=== PATIENT | male | born 1975 | race Caucasian/White ===

== ENCOUNTER 2025-07-06 09:46 | Outpatient (CLI) | payer MEDICAID ==
--- NOTE | 2025-07-06 12:05 | RADIOLOGY REPORT ---
CLINICAL INFORMATION: PAIN IN RIGHT AND LEFT SHOULDER. TECHNIQUE: Multisequence multiplanar MRI images of the right shoulder were obtained without contrast . COMPARISON: None FINDINGS: Acromioclavicular joint: There is moderate acromioclavicular hypertrophy and moderate edema. There is type 1 acromion. Small amount of fluid in the subacromial / subdeltoid bursa. Rotator cuff tendons: Attenuated distal supraspinatus and infraspinatus tendons. There is articular s urface fraying in the supraspinatus and infraspinatus tendons just proximal to their insertions. Par tial-thickness tear of the supraspinatus tendon insertional footprint measuring up to approximately 0 .7 cm in AP dimension and 0.5 cm in transverse dimension, involving up to 50% of the tendon thickness , appears to be interstitial tear, although articular surface communication of the tear can not be ex cluded. Mild tendinosis of the distal subscapularis tendon with small thin interstitial tear near its insertion. Teres minor tendon is intact. Biceps tendon: No significant tendinosis. No evidence of attrition or tear. Labrum: No labral tear identified. Bones: No fracture or focal marrow contusion. Muscles: Normal muscle bulk. No atrophy. Other: No other significant findings. IMPRESSION: 1. Attenuated distal supraspinatus and infraspinatus tendons with articular surface fraying just prox imal to their insertions. Partial-thickness tear of the supraspinatus tendon insertional footprint as described above. 2. Mild tendinosis of the distal subscapularis tendon with small thin interstitial tear near its inse rtion. 3. Moderate acromioclavicular hypertrophy with mild subacromial/subdeltoid bursitis.
--- NOTE | 2025-07-06 12:35 | RADIOLOGY REPORT ---
CLINICAL INFORMATION: 49 years old, Male; PAIN IN RIGHT AND LEFT SHOULDER. TECHNIQUE: Multisequence multiplanar MRI images of the left shoulder were obtained without contrast. COMPARISON: None FINDINGS: Acromioclavicular joint: There is moderate acromioclavicular hypertrophy and moderate edema. There is Type 2 acromion. Small amount of fluid in the subacromial / subdeltoid bursa. Rotator cuff tendons: Mild tendinosis of the distal supraspinatus and infraspinatus tendons. Small pa rtial-thickness articular surface tear near the supraspinatus insertion measuring up to 0.4 cm in AP dimension and 0.3 cm in transverse dimension, involving less than 50% of the tendon thickness. Mild t endinosis of the distal subscapularis tendon with mild articular surface fraying just proximal to the insertion. Teres minor tendon is intact. Biceps tendon: No significant tendinosis. No evidence of attrition or tear. Accessory long head bicep s tendon visualized adjacent to the main long head biceps tendon at the level of the bicipital groove , appears to arise from the superior capsule. Labrum: No labral tear identified. Bones: No fracture or focal marrow contusion. Small bone island at the posterior glenoid. Muscles: Normal muscle bulk. No atrophy. Other: No other significant findings. IMPRESSION: 1. Rotator cuff tendinosis with small partial-thickness articular surface tear near the supraspinatus insertion and mild articular surface fraying of the distal subscapularis tendon. 2. Moderate acromioclavicular hypertrophy with mild subacromial/subdeltoid bursitis. 3. Additional nonacute findings as described above.
== END 2025-07-06 23:59 | disposition home or self-care (01) ==
LOC: MRI02 09:46
PROVIDERS: ATTEND Physician Assistant Surgical
DX: M75.111 Incomplete rotator cuff tear or rupture of right shoulder, not specified as traumatic (principal); M25.511 Pain in right shoulder; M25.512 Pain in left shoulder; M89.311 Hypertrophy of bone, right shoulder; M75.112 Incomplete rotator cuff tear or rupture of left shoulder, not specified as traumatic
CPT/HCPCS: 73221